=== PATIENT | female | born 1975 | race Caucasian/White ===

== ENCOUNTER 2023-07-18 13:08 | Emergency (ER) | payer OTHER ==
[2023-07-18 13:21] VITALS: BP 134/73; PULSE 83; RESP 18; TEMP 98.3; BMI 34.7
[2023-07-18 13:50] LABS: BASO % 0.7 % (0-2.0); EOS % 2.2 % (0-4.5); HEMATOCRIT 31.6 % (32.4-45.2); LYMPH % 34.5 % (8-40); MCH 21.3 pg (25.7-33.7); MCHC 31.5 g/dl (32.0-36.0); MEAN CELL VOLUME 67.6 fl (80-96); MONO % 6.3 % (3.8-10.2); NEUT % 56.3 % (42.8-82.8); PLATELET COUNT 279 10^3/uL (134-434); RBC 4.68 M/mm3 (3.60-5.2); RDW 19.9 % (11.6-15.6); WHITE BLOOD COUNT 7.1 K/mm3 (4.0-10.0)
[2023-07-18 14:25] LABS: ANISOCYTOSIS 2+; MACROCYTOSIS 0
[2023-07-18 14:28] LABS: POTASSIUM 3.6 mmol/L (3.5-5.1)
[2023-07-18 14:29] LABS: ALBUMIN 3.6 g/dl (3.4-5.0); CALCIUM 8.3 mg/dL (8.5-10.1)
[2023-07-18 14:30] LABS: BLOOD UREA NITROGEN 12.9 mg/dL (7-18)
[2023-07-18 14:32] LABS: CREATININE 0.8 mg/dL (0.55-1.3)
[2023-07-18 14:34] LABS: BILIRUBIN,TOTAL 0.2 mg/dL (0.2-1); TOT PROT 7.7 g/dl (6.4-8.2)
== END 2023-07-18 15:25 | disposition home or self-care (01) ==
LOC: JER 13:08
DX: D25.9 Leiomyoma of uterus, unspecified (principal)
CPT/HCPCS: 36415; 76830-TC; 80053; 84703; 85025; 86850; 86900; 86901; 99284-25